=== PATIENT | male | born 1990 | race Caucasian/White ===

== ENCOUNTER 2024-12-26 13:38 | Outpatient (AMB) | payer MEDICARE, MEDICAID, SELFPAY ==
[2024-12-26 13:53] VITALS: BP 144/91; PULSE 90; RESP 19; TEMP 36.4; O2SAT 93; BMI 28.1
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
== END 2024-12-26 14:14 | disposition home or self-care (01) ==
LOC: HODSRG 13:38
PROVIDERS: PCP Family Medicine; Referring Provider Family Medicine; Supervising Provider Surgery; Visit Provider Surgery
DX: R10.9 Unspecified abdominal pain (principal)
CPT/HCPCS: 99203; G0463

== ENCOUNTER 2025-02-27 09:47 | Outpatient (AMB) | payer MEDICARE, MEDICAID, SELFPAY ==
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
[2025-02-27 09:53] VITALS: BP 144/98; PULSE 88; RESP 16; TEMP 36.6; O2SAT 95; BMI 27.3
== END 2025-02-27 10:25 | disposition home or self-care (01) ==
LOC: HODSRG 09:47
PROVIDERS: PCP Family Medicine; Referring Provider Family Medicine; Supervising Provider Surgery; Visit Provider Surgery
DX: K43.2 Incisional hernia without obstruction or gangrene (principal); R18.8 Other ascites
CPT/HCPCS: 99213; G0463